=== PATIENT | female | born 1980 | race Caucasian/White ===

== ENCOUNTER 2019-01-09 07:11 | Emergency (ER) | payer MEDICAID ==
[2019-01-09 08:02] LABS: ADD MAN DIFF? NO
[2019-01-09 08:04] LABS: BASOPHILS % 0.3 % (0.0-2.0); EOSINOPHILS # 0.1 10^3/ul (0.0-0.5); EOSINOPHILS % 3.6 % (0.0-7.0); HEMATOCRIT 34.9 % (37.0-47.0); HEMOGLOBIN 11.1 g/dl (12.0-16.0); LYMPHOCYTES % 27.2 % (15.0-51.0); MEAN CORPUSCULAR HEMOGLOBIN 26.5 pg (29.0-33.0); MEAN CORPUSCULAR HGB CONC 31.8 g/dl (32.0-37.0); MEAN CORPUSCULAR VOLUME 83.3 fl (82.0-101.0); MEAN PLATELET VOLUME 11.1 fl (7.4-10.4); MONOCYTE # 0.3 10^3/ul (0.3-0.9); MONOCYTES % 9.4 % (0.0-11.0); NEUTROPHIL # 2.1 10^3/ul (1.6-7.5); NEUTROPHILS % 59.5 % (39.0-77.0); PLATELET COUNT 174 10^3/UL (140-415); RED BLOOD COUNT 4.19 10^6/ul (4.20-5.40); RED CELL DISTRIBUTION WIDTH 13.1 % (11.5-14.5)
[2019-01-09 08:04] LABS: WHITE BLOOD COUNT 3.6 10^3/ul (4.8-10.8)
[2019-01-09 08:16] LABS: ADD UMIC YES; UR ASCORBIC ACID NEGATIVE (NEGATIVE); UR BACTERIA FEW /HPF (NONE SEEN); UR BILIRUBIN (Dip) NEGATIVE (NEGATIVE); UR BLOOD (Dip) 3+ mg/dL (NEGATIVE); UR CLARITY CLOUDY (CLEAR); UR COLOR YELLOW (YELLOW); UR GLUCOSE (Dip) NEGATIVE (NEGATIVE); UR KETONES (Dip) NEGATIVE (NEGATIVE); UR LEUKOCYTE ESTERASE (Dip) TRACE Leu/ul (NEGATIVE); UR MUCUS FEW /HPF (NONE SEEN); UR NITRITE (Dip) NEGATIVE (NEGATIVE); UR RBC > 182 /HPF (0-5); UR SPECIFIC GRAVITY (Dip) 1.015 (1.003-1.030); UR SQUAMOUS EPITHELIAL CELL FEW /HPF (FEW); UR TOTAL PROTEIN (Dip) NEGATIVE (NEGATIVE); UR UROBILINOGEN (Dip) NEGATIVE (NEGATIVE); UR WBC 41 /HPF (0-5)
[2019-01-09 08:22] LABS: ALANINE AMINOTRANSFERASE 18 IU/L (13-69); ALBUMIN 4.4 g/dl (3.3-4.9); ALBUMIN/GLOBULIN RATIO 1.29; ALKALINE PHOSPHATASE 67 IU/L (42-121); ANION GAP 11 (5-13); ASPARTATE AMINO TRANSFERASE 21 IU/L (15-46); BILIRUBIN,INDIRECT 0.6 mg/dl (0-1.1); BILIRUBIN,TOTAL 0.6 mg/dl (0.2-1.3); BLOOD UREA NITROGEN 13 mg/dl (7-20); CALCIUM 9.4 mg/dl (8.4-10.2); CARBON DIOXIDE 23 mmol/L (21-31); CHLORIDE 109 mmol/L (97-110); CREATININE 0.69 mg/dl (0.44-1.00); Estimated GFR > 60 mL/min (>60); GLUCOSE 96 mg/dl (70-220); LIPASE 60 U/L (23-300); POTASSIUM 3.8 mmol/L (3.5-5.1); SODIUM 143 mmol/L (135-144); TOTAL PROTEIN 7.8 g/dl (6.1-8.1)
== END 2019-01-09 10:03 | disposition home or self-care (01) ==
LOC: FTE 07:11
DX: D25.9 Leiomyoma of uterus, unspecified (principal); R10.2 Pelvic and perineal pain
CPT/HCPCS: 36415; 76830; 76856; 80053; 81001; 83690; 84703; 85025; 99284-25

== ENCOUNTER 2019-01-10 06:32 | Emergency (ER) | payer MEDICAID ==
[2019-01-10 07:28] LABS: ADD MAN DIFF? NO
[2019-01-10 07:29] LABS: BASOPHILS % 0.4 % (0.0-2.0); EOSINOPHILS # 0.1 10^3/ul (0.0-0.5); HEMATOCRIT 31.6 % (37.0-47.0); HEMOGLOBIN 10.2 g/dl (12.0-16.0); LYMPHOCYTES # 0.9 10^3/ul (0.8-2.9); LYMPHOCYTES % 18.7 % (15.0-51.0); MEAN CORPUSCULAR HEMOGLOBIN 26.8 pg (29.0-33.0); MEAN CORPUSCULAR HGB CONC 32.3 g/dl (32.0-37.0); MEAN CORPUSCULAR VOLUME 82.9 fl (82.0-101.0); MEAN PLATELET VOLUME 11.1 fl (7.4-10.4); MONOCYTE # 0.3 10^3/ul (0.3-0.9); MONOCYTES % 6.2 % (0.0-11.0); NEUTROPHIL # 3.7 10^3/ul (1.6-7.5); NEUTROPHILS % 72.5 % (39.0-77.0); PLATELET COUNT 175 10^3/UL (140-415); RED BLOOD COUNT 3.81 10^6/ul (4.20-5.40); RED CELL DISTRIBUTION WIDTH 13.2 % (11.5-14.5)
== END 2019-01-10 08:01 | disposition home or self-care (01) ==
LOC: FTE 06:32
DX: N93.9 Abnormal uterine and vaginal bleeding, unspecified (principal); D25.9 Leiomyoma of uterus, unspecified
CPT/HCPCS: 85025; 99283

== ENCOUNTER 2019-01-11 04:47 | Inpatient (IN) | payer MEDICAID ==
[2019-01-11 05:12] LABS: ADD MAN DIFF? NO
[2019-01-11 05:19] LABS: WHITE BLOOD COUNT 4.1 10^3/ul (4.8-10.8)
[2019-01-11 05:19] LABS: BASOPHILS % 0.5 % (0.0-2.0); EOSINOPHILS % 0.7 % (0.0-7.0); HEMATOCRIT 21.5 % (37.0-47.0); LYMPHOCYTES # 1.1 10^3/ul (0.8-2.9); LYMPHOCYTES % 26.6 % (15.0-51.0); MEAN CORPUSCULAR HEMOGLOBIN 27.3 pg (29.0-33.0); MEAN CORPUSCULAR HGB CONC 32.6 g/dl (32.0-37.0); MEAN PLATELET VOLUME 11.4 fl (7.4-10.4); MONOCYTE # 0.4 10^3/ul (0.3-0.9); MONOCYTES % 8.9 % (0.0-11.0); NEUTROPHIL # 2.6 10^3/ul (1.6-7.5); NEUTROPHILS % 63.1 % (39.0-77.0); PLATELET COUNT 147 10^3/UL (140-415); RED BLOOD COUNT 2.56 10^6/ul (4.20-5.40); RED CELL DISTRIBUTION WIDTH 13.4 % (11.5-14.5)
[2019-01-11] MEDS: SOD CHLORIDE 0.9% 1,000 ML IV (05:32)
[2019-01-11 05:38] LABS: ANION GAP 7 (5-13); BLOOD UREA NITROGEN 18 mg/dl (7-20); CALCIUM 8.3 mg/dl (8.4-10.2); CARBON DIOXIDE 23 mmol/L (21-31); CHLORIDE 107 mmol/L (97-110); CREATININE 0.61 mg/dl (0.44-1.00); Estimated GFR > 60 mL/min (>60); GLUCOSE 116 mg/dl (70-220); POTASSIUM 3.7 mmol/L (3.5-5.1); SODIUM 137 mmol/L (135-144)
[2019-01-11] MEDS ORDERED: LIDOCAINE 2% (SDV) 5 ML INJ (07:00)
[2019-01-11] MEDS ORDERED: DESFLURANE 15 MIN (07:00)
[2019-01-11] MEDS ORDERED: SOD CHLORIDE 0.9% 250 ML IV* (08:21)
[2019-01-11] MEDS ORDERED: ACETAMINOPHEN 325 MG TAB PO (08:30)
[2019-01-11] MEDS ORDERED: NACL 0.9% 3 ML SYG IV (08:30)
[2019-01-11 08:40] LABS: IRON 107 ug/dl (35-150)
[2019-01-11 08:50] LABS: % IRON SATURATION 37 % SAT (22-52); TOTAL IRON BINDING CAPACITY 287 ug/dl (241-421)
[2019-01-11] MEDS: DOCUSATE SODIUM 100 MG CAP PO ×3 (09:00→21:00)
[2019-01-11] MEDS ORDERED: PROPOFOL 40 ML (10:13)
[2019-01-11] MEDS ORDERED: CEFAZOLIN 1 GM INJ (10:13)
[2019-01-11] MEDS ORDERED: FAMOTIDINE 20 MG INJ (10:14)
[2019-01-11] MEDS ORDERED: FENTAnyl 50 MCG/ML VIAL (10:14)
[2019-01-11] MEDS ORDERED: ONDANSETRON 4 MG INJ (10:14)
[2019-01-11] MEDS ORDERED: DIPHENHYDRAMINE 50 MG INJ IV (11:30)
[2019-01-11] MEDS ORDERED: FENTAnyl 50 MCG/ML VIAL IV (11:30)
[2019-01-11] MEDS ORDERED: morphine (1 MG/ML) 10ML SYRINGE IV ×2 (11:30)
[2019-01-11] MEDS ORDERED: LABETALOL HCL 20MG INJ IV (11:30)
[2019-01-11] MEDS ORDERED: OXYCODONE/ACETAMINOPHEN (5/325) TAB PO ×2 (11:30)
[2019-01-11] MEDS ORDERED: HYDROmorphONE 1 MG/5 ML IV SYRINGE IV (11:30)
[2019-01-11] MEDS ORDERED: ALBUTEROL 0.083% (NEB) 2.5 MG/3 ML AMP HHN (11:30)
[2019-01-11] MEDS: ONDANSETRON 4 MG INJ IV ×2 (12:42→14:58)
[2019-01-11] MEDS: MEPERIDINE 25 MG INJ IV (12:42)
[2019-01-11] MEDS: HYDROmorphONE 1 MG/5 ML IV SYRINGE IV ×2 (12:45→12:57)
[2019-01-11] MEDS: FENTAnyl 50 MCG/ML VIAL IV (13:09)
[2019-01-11] MEDS: SOD FERRIC GLUC COMPLX 125 MG in SOD CHLORIDE 0.9% 100 ML IVPB (13:51)
[2019-01-11] MEDS: HYDROmorphONE 2 MG/ML SYG IV (14:58)
[2019-01-11] MEDS ORDERED: HYDROmorphONE 1 MG/ML SYG IV (15:00)
[2019-01-11 16:06] LABS: IMMEDIATE SPIN CROSSMATCH 1 4
[2019-01-11 22:55] LABS: HEMATOCRIT 27.9 % (37.0-47.0); HEMOGLOBIN 9.3 g/dl (12.0-16.0)
[2019-01-12 05:52] LABS: ADD MAN DIFF? NO
[2019-01-12 06:00] LABS: BASOPHILS % 0.2 % (0.0-2.0); HEMATOCRIT 26.5 % (37.0-47.0); HEMOGLOBIN 8.8 g/dl (12.0-16.0); LYMPHOCYTES # 1.1 10^3/ul (0.8-2.9); LYMPHOCYTES % 17.8 % (15.0-51.0); MEAN CORPUSCULAR HGB CONC 33.2 g/dl (32.0-37.0); MEAN CORPUSCULAR VOLUME 84.4 fl (82.0-101.0); MEAN PLATELET VOLUME 12.1 fl (7.4-10.4); MONOCYTE # 0.5 10^3/ul (0.3-0.9); MONOCYTES % 7.3 % (0.0-11.0); NEUTROPHIL # 4.6 10^3/ul (1.6-7.5); NEUTROPHILS % 74.5 % (39.0-77.0); PLATELET COUNT 118 10^3/UL (140-415); RED BLOOD COUNT 3.14 10^6/ul (4.20-5.40); RED CELL DISTRIBUTION WIDTH 14.2 % (11.5-14.5)
[2019-01-12 06:00] LABS: WHITE BLOOD COUNT 6.1 10^3/ul (4.8-10.8)
[2019-01-12 06:39] LABS: ANION GAP 8 (5-13); BLOOD UREA NITROGEN 10 mg/dl (7-20); CALCIUM 8.2 mg/dl (8.4-10.2); CARBON DIOXIDE 21 mmol/L (21-31); CHLORIDE 109 mmol/L (97-110); Estimated GFR > 60 mL/min (>60); GLUCOSE 95 mg/dl (70-220); MAGNESIUM 1.8 mg/dl (1.7-2.5); POTASSIUM 3.9 mmol/L (3.5-5.1); SODIUM 138 mmol/L (135-144)
[2019-01-12] MEDS: DOCUSATE SODIUM 100 MG CAP PO ×3 (08:48→20:05)
[2019-01-12] MEDS: SOD FERRIC GLUC COMPLX 125 MG in SOD CHLORIDE 0.9% 100 ML IVPB (12:32)
[2019-01-13] MEDS: HYDROCODONE/APAP (5/325) TAB PO (01:08)
[2019-01-13 05:40] LABS: ADD MAN DIFF? NO
[2019-01-13 06:03] LABS: BASOPHILS % 0.2 % (0.0-2.0); EOSINOPHILS % 0.5 % (0.0-7.0); HEMATOCRIT 26.1 % (37.0-47.0); HEMOGLOBIN 8.5 g/dl (12.0-16.0); LYMPHOCYTES # 1.5 10^3/ul (0.8-2.9); MEAN CORPUSCULAR HEMOGLOBIN 27.8 pg (29.0-33.0); MEAN CORPUSCULAR HGB CONC 32.6 g/dl (32.0-37.0); MEAN CORPUSCULAR VOLUME 85.3 fl (82.0-101.0); MEAN PLATELET VOLUME 11.7 fl (7.4-10.4); MONOCYTE # 0.4 10^3/ul (0.3-0.9); MONOCYTES % 7.3 % (0.0-11.0); NEUTROPHIL # 3.8 10^3/ul (1.6-7.5); NEUTROPHILS % 65.5 % (39.0-77.0); PLATELET COUNT 121 10^3/UL (140-415); RED BLOOD COUNT 3.06 10^6/ul (4.20-5.40)
[2019-01-13 06:03] LABS: WHITE BLOOD COUNT 5.8 10^3/ul (4.8-10.8)
[2019-01-13] MEDS: DOCUSATE SODIUM 100 MG CAP PO ×2 (08:31→12:44)
[2019-01-13] MEDS: SOD FERRIC GLUC COMPLX 125 MG in SOD CHLORIDE 0.9% 100 ML IVPB (13:06)
== END 2019-01-13 16:20 | disposition home or self-care (01) | DRG 742 ==
LOC: E/R 04:47 → 2NE 05:55
PROC: 0U5B8ZZ Destruction of Endometrium, Via Natural or Artificial Opening Endoscopic (ICD-10-PCS; principal; 2019-01-11 11:30)
PROC: 0UDB8ZX Extraction of Endometrium, Via Natural or Artificial Opening Endoscopic, Diagnostic (ICD-10-PCS; 2019-01-11 11:30)
PROC: 30273N1 Transfusion of Nonautologous Red Blood Cells into Products of Conception, Circulatory, Percutaneous Approach (ICD-10-PCS; 2019-01-11 11:30)
DX: D25.9 Leiomyoma of uterus, unspecified (principal); D62 Acute posthemorrhagic anemia; N92.0 Excessive and frequent menstruation with regular cycle; N92.1 Excessive and frequent menstruation with irregular cycle
CPT/HCPCS: 36430; 80048; 83540; 83735; 84702; 85014; 85018; 85025; 86850; 86900; 86901; 86920; 88305; 88331